=== PATIENT | male | born 1960 | race Caucasian/White ===

== ENCOUNTER 2019-08-14 22:23 | Emergency (ER) | payer OTHER, MEDICAID ==
[~2019-08-14] VITALS: Ht 182.9 cm; Wt 90.7 kg
[2019-08-14 22:46] VITALS: BP_SYST 136
--- NOTE | 2019-08-14 22:52 | NUR ---
Patient triaged and placed in waiting room. VSS and patient appears in no acute distress at this time. Accompanied by caregiver, awaiting available bed, and MD notified of need for MSE.
[2019-08-15 00:35] LABS: EOSINOPHILS # (AUTO) 0.1 K/uL (0.0-0.4); LYMPHOCYTES # (AUTO) 1.2 K/uL (1.0-5.5); MEAN CORPUSCULAR HEMOGLOBIN 31 pg (27-31); WHITE BLOOD COUNT (AUTO) 6.5 K/uL (4.8-10.8)
[2019-08-15 00:45] LABS: BASOPHILS % (AUTO) 0.6 % (0.0-2.0); HEMATOCRIT 41.2 % (36-54); LYMPHOCYTES % (AUTO) 18.2 % (20.5-51.5); MEAN CORPUSCULAR HGB CONC 34 % (32-36); MEAN CORPUSCULAR VOLUME 90 fL (79.0-98.0); MONOCYTES # (AUTO) 0.5 K/uL (0.0-1.0); MONOCYTES % (AUTO) 7.1 % (1.7-9.3); NEUTROPHILS # (AUTO) 4.7 K/uL (1.8-7.7); NEUTROPHILS % (AUTO) 73.1 % (40.0-70.0); PLATELET COUNT (AUTO) 174 K/uL (130-430); RED BLOOD CELL COUNT(AUTO) 4.59 MIL/uL (4.2-6.2); RED CELL DISTRIBUTION WIDTH 14.9 % (9.0-15.0)
[2019-08-15 00:48] LABS: CALCIUM 8.9 mg/dL (8.4-11.0); CREATININE 1.05 mg/dL (0.55-1.30); POTASSIUM 3.5 mmol/L (3.5-5.1)
--- NOTE | 2019-08-15 00:50 | NUR ---
Patient to ER bed ch1 for evaluation. Side rails up.
[2019-08-15 00:53] LABS: INR 1.1 (0.80-1.20); PROTHROMBIN TIME 10.9 SECS (9.5-12.5)
--- NOTE | 2019-08-15 00:56 | NUR ---
ER Dr. Norwood at bedside examining patient.
--- NOTE | 2019-08-15 01:00 | NUR ---
Pt BIB caregiver via wheelchair for evaluation of new onset discoloration to 5th digit on R toe. No trauma noted. No other injuries/complaints per pt/noted. Will continue to monitor.
[2019-08-15 01:02] LABS: ALBUMIN 3.9 g/dL (3.4-4.8); TOTAL BILIRUBIN 0.5 mg/dL (0.0-1.0)
[2019-08-15 01:20] VITALS: BP_SYST 129
--- NOTE | 2019-08-15 01:20 | NUR ---
Patient given written and verbal discharge instructions and verbalizes understanding. ER MD Norwood discussed with patient the results and treatment provided. Patient in stable condition. ID arm band removed. No Rx given. Patient educated on pain management and to follow up with PMD. Pain Scale 0. Opportunity for questions provided and answered. Medication side effect fact sheet provided.
== END 2019-08-15 01:20 | disposition home or self-care (01) ==
LOC: SED 22:23
DX: S90.121A Contusion of right lesser toe(s) without damage to nail, initial encounter (principal); I10 Essential (primary) hypertension; E03.9 Hypothyroidism, unspecified; E11.9 Type 2 diabetes mellitus without complications; I48.91 Unspecified atrial fibrillation; F32.9 Major depressive disorder, single episode, unspecified; X58.XXXA Exposure to other specified factors, initial encounter; Y93.89 Activity, other specified; Y92.89 Other specified places as the place of occurrence of the external cause; Y99.8 Other external cause status
CPT/HCPCS: 36415; 80053; 85025; 85610-TC; 85730-TC; 99284